=== PATIENT | male | born 1965 | race Caucasian/White ===

== ENCOUNTER 2017-02-25 08:16 | Emergency (ER) | payer MEDICAID, OTHER ==
--- NOTE | 2017-02-25 09:40 | C.PDOC ---
History Of Present Illness 51 y/o male presents to the ED with complains of left sided chest pain, nonradiating since yesterday. Pt was walking home with book bag on his left shoulder when he first noticed the pain, primary at the shoulder. Pt later fell asleep on the cough on his left side and when he woke up, noticed increased pain ; pain is worse with deep breaths and "when I touch it". Pt denies SOB, vomiting or any other complaints. No history of similar episodes. FMHx father with HTN. Time Seen by Provider: 02/25/17 08:53 Chief Complaint (Nursing): Chest Pain History Per: Patient History/Exam Limitations: no limitations Onset/Duration Of Symptoms: Hrs Current Symptoms Are (Timing): Still Present Severity: Mild Quality: "Pain" Exacerbating Factors: Deep Breathing Alleviating Factors: None Recent travel outside of the [place]: No Past Medical History Reviewed: Historical Data, Nursing Documentation, Vital Signs Vital Signs: Last Vital Signs Temp 98.2 F 02/25/17 13:46 Pulse 70 02/25/17 13:46 Resp 16 02/25/17 13:46 BP 116/80 02/25/17 13:46 Pulse Ox 100 02/25/17 13:46 Family History: States: Unknown Family Hx - Social History Hx Alcohol Use: No Hx Substance Use: No - Immunization History Hx Tetanus Toxoid Vaccination: No Hx Influenza Vaccination: No Hx Pneumococcal Vaccination: No Review Of Systems Except As Marked, All Systems Reviewed And Found Negative. Constitutional: Negative for: Fever Cardiovascular: Positive for: Chest Pain Respiratory: Negative for: Shortness of Breath Gastrointestinal: Negative for: Vomiting Physical Exam - Physical Exam Appears: Non-toxic, No Acute Distress Skin: Warm, Dry, No Rash Head: Atraumatic, Normacephalic Eye(s): bilateral: Normal Inspection, EOMI Nose: Normal Oral Mucosa: Moist Neck: Normal ROM, Supple Chest: Symmetrical, Tenderness (reproducible left sided chest wall tenderness) Cardiovascular: Rhythm Regular, No Murmur Respiratory: Normal Breath Sounds, No Rales, No Rhonchi, No Wheezing Gastrointestinal/Abdominal: Soft, No Tenderness Extremity: Bilateral: Atraumatic Neurological/Psych: Oriented x3 ED Course And Treatment - Laboratory Results Result Diagrams: 02/25/17 09:42 02/25/17 09:42 ECG: Interpreted By Me, Viewed By Me ECG Rhythm: Sinus Rhythm Rate From EC (BPM) O2 Sat by Pulse Oximetry: 98 (on room air) Pulse Ox Interpretation: Normal Progress Note: Plan: labs, CXR, UA, IV fluids, EKG. On re-evaluation, patient is resting comfortably, is no longer having chest pain or shortness of breath. Patient has no risk factors for pulmonary emboli or DVT. Clinical presentation is not suggestive of aortic dissection. Pt was offered admission for further evaluation and rule out cardiac involvement. Pt refused. Repeat felix agreed upon. On re-evaluation, pt remains stable. No SOB. CArdiac enzymes negative. Patient is being discharged home and is being advised to follow up with physician/clinic in 1-2 days. CAse discussed with Dr Marr, who evaluated labs and EKG, agreed upon plan and discharge. Disposition - Disposition Referrals: [facility] [Outside] Disposition: HOME/ ROUTINE Disposition Time: 13:20 Condition: STABLE Additional Instructions: Follow up with primary medical doctor in 1-3 days without fail for further evaluation. Return to the emergency department at any time if symptoms persist or worsen. Instructions: Chest Pain (ED) - Clinical Impression Clinical Impression: Chest pain - PA / VICE PRESIDENT SAFETY / Resident Statement MD/DO has reviewed & agrees with the documentation as recorded. - Scribe Statement The provider has reviewed the documentation as recorded by the Scribe Yrn Alas All medical record entries made by the Scribe were at my direction and personally dictated by me. I have reviewed the chart and agree that the record accurately reflects my personal performance of the history, physical exam, medical decision making, and the department course for this patient. I have also personally directed, reviewed, and agree with the discharge instructions and disposition.
[2017-02-25 09:50] LABS: BASO # 0.1 K/uL (0.0-0.2); EOS # 0.5 K/uL (0.0-0.7); EOS % 8.2 % (0.0-4.0); HEMATOCRIT 43.2 % (35.0-51.0); LYMPH # 1.4 K/uL (1.0-4.3); LYMPH % 23.9 % (20.0-40.0); MEAN CELL VOLUME 92.7 fL (80.0-94.0); MEAN CORPUSCULAR HEMOGLOBIN 30.4 pg (27.0-31.0); MEAN CORPUSCULAR HGB CONC 32.7 g/dL (33.0-37.0); MONO # 0.6 K/uL (0.0-0.8); MONO % 10.6 % (0.0-10.0); RED CELL DISTRIBUTION WIDTH 13.6 % (11.5-14.5); WHITE BLOOD COUNT 6.1 K/uL (4.8-10.8)
[2017-02-25 09:58] LABS: CHLORIDE 101 mmol/L (98-107)
[2017-02-25 09:59] LABS: POTASSIUM 4.1 mmol/L (3.6-5.2); SODIUM 140 mmol/L (132-148)
[2017-02-25 10:01] LABS: ALB/GLOB RATIO 1.4 (1.0-2.1); AST/SGOT 28 U/L (17-59); BILIRUBIN,TOTAL 0.3 mg/dL (0.2-1.3); CARBON DIOXIDE 29 mmol/L (22-30); GFR AFRICAN-AMERICAN > 60; TOTAL PROTEIN 6.6 g/dL (6.3-8.3)
[2017-02-25 10:02] LABS: ALKALINE PHOSPHATASE 81 U/L (38-126); ALT/SGPT 33 U/L (21-72); BLOOD UREA NITROGEN 10 mg/dL (9-20); CALCIUM 8.6 mg/dl (8.6-10.4); GLUCOSE,RANDOM 94 mg/dL (75-110)
--- NOTE | 2017-02-25 11:22 | RAD ---
HISTORY: SOB COMPARISON: None available TECHNIQUE: Chest PA and lateral FINDINGS: LUNGS: Mild atelectasis or scarring within the right upper lobe. Mild retrocardiac atelectasis. Please note that chest x-ray has limited sensitivity for the detection of pulmonary masses. PLEURA: No significant pleural effusion identified. No definite pneumothorax . CARDIOVASCULAR: Heart size appears within normal limits. Mild aortic tortuosity. OSSEOUS STRUCTURES: No acute osseous abnormality identified. VISUALIZED UPPER ABDOMEN: Unremarkable. OTHER FINDINGS: None. IMPRESSION: Mild atelectasis or scarring within the right upper lobe. Mild retrocardiac atelectasis.
[2017-02-25 13:46] VITALS: BP 116/80; PULSE 70; RESP 16; TEMP 98.2
[2017-02-25 14:28] VITALS: O2SAT 98
--- NOTE | 2017-03-09 15:27 | CARD ---
APPROVED REPORT EKG Measurement Heart [id number] <Conclusion> Normal sinus rhythm Normal ECG
== END 2017-02-25 13:46 | disposition home or self-care (01) ==
LOC: C.ER 08:16
DX: R07.9 Chest pain, unspecified (principal)